=== PATIENT | female | born 1990 | race Two or more races ===

== ENCOUNTER → 2024-05-27 | Emergency (ER) | payer OTHER ==
[~2024-05-27] VITALS: Ht 154.9 cm; Wt 74.0 kg
[~2024-05-27] MED LIST: POLYOS OP
[2024-05-27 11:51] VITALS: BP 127/71; PULSE 78; RESP 16; TEMP 97.3; O2SAT 96
== END | disposition home or self-care (01) ==
LOC: EMS 11:41
DX: H10.89 Other conjunctivitis (principal); R51.9 Headache, unspecified
CPT/HCPCS: 99283; Z7502